=== PATIENT | male | born 1980 | race Two or more races ===

== ENCOUNTER 2016-12-10 14:05 | Inpatient (IN) | payer MEDICAID, OTHER ==
[~2016-12-10] VITALS: Ht 177.8 cm; Wt 98.7 kg
[2016-12-10 14:34] LABS: Basophils # (auto) 0 uL; Basophils % (auto) 0.5 % (0.0-2.0); Eosinophils # (auto) 0.3 uL; Eosinophils % (auto) 3.4 % (0.0-7.0); Hematocrit 49.4 % (41.0-53.0); Hemoglobin 16.7 g/dL (13.5-17.5); Lymphocytes # (auto) 1.7 uL; Mean Corpuscular Hemoglobin 31.3 pg (28.0-32.0); Mean Corpuscular Hgb Conc. 33.8 g/dL (32.0-36.0); Mean Corpuscular Volume 92.4 fL (80.0-100.0); Mean Platelet Volume 8.4 fL (7.4-10.4); Monocytes # (auto) 0.5 uL; Monocytes % (auto) 6.3 % (0.0-12.0); Neutrophils # (auto) 4.9 uL; Neutrophils % (auto) 66.8 % (37.0-80.0); Platelet Count (auto) 226 10^3/uL (140-450); Red Cell Distribution Width 13.7 % (11.6-16.0); White Blood Cell 7.4 10^3/uL (4.4-10.8)
[2016-12-10 15:12] LABS: Albumin 3.8 g/dL (3.4-5.0); Alkaline Phosphatase 84 U/L (45-117); Anion Gap 8 (5-15); Aspartate Aminotransferase 26 U/L (15-37); BUN/Creatinine Ratio 20.2; Bilirubin, Total 0.9 mg/dL (0.2-1.0); Blood Urea Nitrogen 21 mg/dL (7-18); Calcium 9.1 mg/dL (8.5-10.1); Carbon Dioxide 26 mmol/L (21-32); Chloride 108 mmol/L (98-107); GFR African American 103 mL/min; GFR Non-African American 85 mL/min; Glucose 104 mg/dL (74-106); Sodium 142 mmol/L (136-145); Total Protein 7.7 g/dL (6.4-8.2)
[2016-12-10] MEDS ORDERED: SODIUM CHLORIDE 0.9% 1,000 ML IVB ONE (15:46)
[2016-12-10] MEDS ORDERED: ACETAMINOPHEN 325 MG TAB PO ONE (16:00)
[2016-12-10 16:47] LABS: INR 0.97 (0.9-1.15); Prothrombin Time 10.5 sec (9.37-12.3)
[2016-12-10 16:54] LABS: B-Type Natriuretic Peptide 15.12 pg/mL (0-100)
[2016-12-10 17:16] LABS: Temperature: 23.7 C (20.0-25.0)
[2016-12-10] MEDS ORDERED: MORPHINE SULF INJ 2 MG/ML SYRINGE 1ML IV PRN ×2 (18:00)
[2016-12-10] MEDS ORDERED: LACTULOSE 20Gm/30ML SOLN PO PRN (18:00)
[2016-12-10] MEDS ORDERED: TEMAZEPAM 15 MG CAP PO PRN (18:00)
[2016-12-10] MEDS ORDERED: LORazepam 0.5 MG TAB PO PRN (18:00)
[2016-12-10] MEDS ORDERED: HYDROcodone-ACET 5/325MG TAB PO PRN (18:00)
[2016-12-10] MEDS ORDERED: NITROGLYCERIN 0.4 MG SL TAB SL PRN (18:00)
[2016-12-10] MEDS ORDERED: PROCHLORPERAZINE EDISYLATE 5 MG/ML 2ML VIAL IV PRN (18:00)
[2016-12-10] MEDS: ASPirin 81 mg TAB PO SCH (18:22)
[2016-12-10] MEDS: SODIUM CHLORIDE 0.9% 1,000 ML IV SCH (18:22)
[2016-12-10] MEDS: ENOXAPARIN SOD 40 MG/0.4 ML SYRINGE SC SCH (18:22)
[2016-12-10] MEDS: NITROGLYCERIN 0.2MG/HR TOPICAL PATCH TD SCH (18:24)
[2016-12-10] MEDS: ATORVASTATIN 20 MG TAB PO SCH (22:07)
[2016-12-10] MEDS: METOPROLOL TARTRATE 25 MG TAB PO SCH (22:08)
[2016-12-10] MEDS ORDERED: ASPI325T4 PO (23:07)
[2016-12-11 05:00] VITALS: BP 99/45
[2016-12-11 05:53] LABS: Cholesterol 183 mg/dL (< 200); HDL Cholesterol 30 mg/dL (40-59); LDL Cholesterol 143 mg/dL (< 100); Triglycerides 132 mg/dL (< 150)
[2016-12-11 06:38] VITALS: BP 104/52
[2016-12-11] MEDS: SODIUM CHLORIDE 0.9% 1,000 ML IV SCH ×2 (07:43→20:37)
[2016-12-11 08:00] VITALS: BP 104/52
[2016-12-11] MEDS: ASPirin 81 mg TAB PO SCH (09:01)
[2016-12-11] MEDS: ENOXAPARIN SOD 40 MG/0.4 ML SYRINGE SC SCH (09:03)
[2016-12-11] MEDS: NITROGLYCERIN 0.2MG/HR TOPICAL PATCH TD SCH (09:03)
[2016-12-11] MEDS: METOPROLOL TARTRATE 25 MG TAB PO SCH ×2 (09:03→22:03)
[2016-12-11 10:46] VITALS: BP 116/69
[2016-12-11 15:53] VITALS: BP 123/60
[2016-12-11 21:54] VITALS: BP 114/75
[2016-12-11] MEDS: ATORVASTATIN 20 MG TAB PO SCH (22:04)
[2016-12-12] MEDS: ACETAMINOPHEN 500 MG TAB PO PRN ×2 (01:34→22:43)
[2016-12-12 05:00] VITALS: BP 104/40
[2016-12-12 08:00] VITALS: BP 115/56
[2016-12-12 09:00] VITALS: BP 115/56
[2016-12-12] MEDS: SODIUM CHLORIDE 0.9% 1,000 ML IV SCH ×2 (09:57→22:44)
[2016-12-12] MEDS: METOPROLOL TARTRATE 25 MG TAB PO SCH ×2 (10:00→22:03)
[2016-12-12] MEDS: NITROGLYCERIN 0.2MG/HR TOPICAL PATCH TD SCH (10:00)
[2016-12-12] MEDS: ASPirin 81 mg TAB PO SCH (10:00)
[2016-12-12] MEDS ORDERED: ADENOSINE 83 MG in GIVE UN-DILUTED 0 ML IV STA (11:32)
[2016-12-12 13:00] VITALS: BP 125/74
[2016-12-12 17:00] VITALS: BP 120/65
[2016-12-12] MEDS: ENOXAPARIN SOD 100 MG/1 ML SYRINGE SC SCH (20:00)
[2016-12-12] MEDS: ATORVASTATIN 20 MG TAB PO SCH (21:59)
[2016-12-12 22:00] VITALS: BP 132/75
[2016-12-13 05:00] VITALS: BP 110/58
[2016-12-13] MEDS ORDERED: LIDOCAINE 2%HCL (LOCAL ANESTH.) INJ 20ML MDV ONE (07:36)
[2016-12-13] MEDS ORDERED: fentaNYL CITRATE 100 MCG/2 ML VL ONE (07:37)
[2016-12-13] MEDS ORDERED: MIDAZOLAM HCL 1MG/1ML-2 ML VIAL ONE (07:37)
[2016-12-13] MEDS ORDERED: SODIUM CHL 0.9% 0 ML ONE (07:38)
[2016-12-13] MEDS ORDERED: ANGIOMAX 250 MG VIAL IV ONE ×3 (07:38→09:42)
[2016-12-13] MEDS: ENOXAPARIN SOD 100 MG/1 ML SYRINGE SC SCH ×2 (08:00→22:06)
[2016-12-13] MEDS ORDERED: IOHEXOL 350 MG/ML 100ML IJ ONE ×2 (09:08→09:23)
[2016-12-13] MEDS ORDERED: TICAGRELOR 90 MG TAB ONE (09:23)
[2016-12-13] MEDS ORDERED: SODIUM CHL 0.9% 50 ML ONE ×2 (09:23→09:42)
[2016-12-13] MEDS: ASPirin 81 mg TAB PO SCH (10:00)
[2016-12-13] MEDS: NITROGLYCERIN 0.2MG/HR TOPICAL PATCH TD SCH (10:00)
[2016-12-13] MEDS: METOPROLOL TARTRATE 25 MG TAB PO SCH ×2 (10:00→21:56)
[2016-12-13] MEDS ORDERED: SODIUM CHLORIDE 0.9% 1,000 ML IV SCH (10:43)
[2016-12-13 12:47] VITALS: BP 126/79
[2016-12-13] MEDS: SODIUM CHLORIDE 0.9% 1,000 ML IV SCH (13:21)
[2016-12-13 16:51] VITALS: BP 129/70
[2016-12-13] MEDS: TICAGRELOR 90 MG TAB PO SCH (21:56)
[2016-12-13] MEDS: ATORVASTATIN 20 MG TAB PO SCH (21:56)
[2016-12-13 22:00] VITALS: BP 118/72
[2016-12-14] MEDS: SODIUM CHLORIDE 0.9% 1,000 ML IV SCH ×2 (01:57→18:32)
[2016-12-14 05:00] VITALS: BP 115/64
[2016-12-14 05:48] LABS: Basophils # (auto) 0 uL; Basophils % (auto) 0.5 % (0.0-2.0); Eosinophils # (auto) 0.2 uL; Eosinophils % (auto) 2.7 % (0.0-7.0); Hematocrit 47.7 % (41.0-53.0); Hemoglobin 16.2 g/dL (13.5-17.5); Lymphocytes # (auto) 1.6 uL; Lymphocytes % (auto) 17.2 % (10.0-50.0); Mean Corpuscular Hemoglobin 31.4 pg (28.0-32.0); Mean Corpuscular Volume 92.1 fL (80.0-100.0); Mean Platelet Volume 8.7 fL (7.4-10.4); Monocytes # (auto) 0.8 uL; Monocytes % (auto) 8.4 % (0.0-12.0); Neutrophils # (auto) 6.6 uL; Neutrophils % (auto) 71.2 % (37.0-80.0); Platelet Count (auto) 226 10^3/uL (140-450); Red Cell Distribution Width 13.9 % (11.6-16.0); White Blood Cell 9.2 10^3/uL (4.4-10.8)
[2016-12-14 06:05] LABS: Potassium 3.7 mmol/L (3.5-5.1)
[2016-12-14 06:08] LABS: Albumin 3.1 g/dL (3.4-5.0); BUN/Creatinine Ratio 15.7; Calcium 8.4 mg/dL (8.5-10.1)
[2016-12-14 06:14] LABS: Bilirubin, Total 1.3 mg/dL (0.2-1.0); Total Protein 6.7 g/dL (6.4-8.2)
[2016-12-14 08:55] VITALS: BP 128/84
[2016-12-14] MEDS: NITROGLYCERIN 0.2MG/HR TOPICAL PATCH TD SCH ×2 (10:00→11:55)
[2016-12-14] MEDS: METOPROLOL TARTRATE 25 MG TAB PO SCH (10:00)
[2016-12-14] MEDS: ASPirin 81 mg TAB PO SCH (10:40)
[2016-12-14] MEDS: ENOXAPARIN SOD 100 MG/1 ML SYRINGE SC SCH (10:40)
[2016-12-14] MEDS: TICAGRELOR 90 MG TAB PO SCH (10:41)
[2016-12-14 12:32] VITALS: BP 127/75
[2016-12-14 16:14] VITALS: BP 128/84
[2016-12-14] MEDS ORDERED: ATOR20TA50 PO (16:20)
[2016-12-14] MEDS ORDERED: MET25T PO (16:20)
[2016-12-14] MEDS ORDERED: TICA90TA PO (16:20)
== END 2016-12-14 19:15 | disposition home or self-care (01) | DRG 175 ==
LOC: ER 14:06 → TELE-WESTW 14:07
PROVIDERS: ADMIT Internal Medicine; ATTEND Nurse Practitioner Acute Care
PROC: 027136Z Dilation of Coronary Artery, Two Arteries with Three Drug-eluting Intraluminal Devices, Percutaneous Approach (ICD-10-PCS; principal; 2016-12-13)
PROC: 4A023N7 Measurement of Cardiac Sampling and Pressure, Left Heart, Percutaneous Approach (ICD-10-PCS; 2016-12-13)
PROC: B2111ZZ Fluoroscopy of Multiple Coronary Arteries using Low Osmolar Contrast (ICD-10-PCS; 2016-12-13)
PROC: B2151ZZ Fluoroscopy of Left Heart using Low Osmolar Contrast (ICD-10-PCS; 2016-12-13)
DX: I25.110 Atherosclerotic heart disease of native coronary artery with unstable angina pectoris (principal); I24.9 Acute ischemic heart disease, unspecified; I10 Essential (primary) hypertension; E78.00 Pure hypercholesterolemia, unspecified; R79.89 Other specified abnormal findings of blood chemistry; G44.209 Tension-type headache, unspecified, not intractable; E11.9 Type 2 diabetes mellitus without complications; F41.9 Anxiety disorder, unspecified; Z95.5 Presence of coronary angioplasty implant and graft; Z83.3 Family history of diabetes mellitus; Z82.49 Family history of ischemic heart disease and other diseases of the circulatory system; Z79.82 Long term (current) use of aspirin; I25.2 Old myocardial infarction; Q75.1 Craniofacial dysostosis
CPT/HCPCS: 36415; 70450; 71020; 78452; 80053; 80061; 82550; 83735; 83880; 84443; 84484; 85025; 85379; 85610; 85652; 85730; 86141; 92928; 92929; 93005; 93017; 93458; 94761; 96360; 99152; C1874; G0434; J0153; J2250

== ENCOUNTER 2016-12-15 15:40 | Emergency (ER) | payer MEDICAID ==
[~2016-12-15] VITALS: Ht 177.8 cm; Wt 97.5 kg
[~2016-12-15 15:40] MED LIST: ASPI325T4 PO; ATOR20TA50 PO; MET25T PO; TICA90TA PO
[2016-12-15 16:08] VITALS: BP 122/78
== END 2016-12-15 21:12 | disposition left against medical advice (07) ==
LOC: ER 15:56
DX: R10.9 Unspecified abdominal pain (principal); Z48.01 Encounter for change or removal of surgical wound dressing; Z53.21 Procedure and treatment not carried out due to patient leaving prior to being seen by health care provider